=== PATIENT | female | born 1980 | race Caucasian/White ===

== ENCOUNTER 2019-02-27 19:26 | Emergency (ER) | payer OTHER ==
[~2019-02-27] VITALS: Ht 170.2 cm; Wt 72.6 kg
[~2019-02-27 19:26] MED LIST: CLONAZEPAM 1 MG1 M1 PO; KEFLEX500 MG PO; NORCO 5-325 TA1 EACH PO
[2019-02-27] MEDS ORDERED: PROMETH-CODEIN 65 ML PO (20:33)
[2019-02-27] MEDS ORDERED: TAMIFLU75 MG PO (20:33)
[2019-02-27 21:11] VITALS: BP 148/99
== END 2019-02-27 21:12 | disposition home or self-care (01) ==
LOC: ER 19:26
DX: J10.1 Influenza due to other identified influenza virus with other respiratory manifestations (principal); F41.9 Anxiety disorder, unspecified; F17.210 Nicotine dependence, cigarettes, uncomplicated; Z90.710 Acquired absence of both cervix and uterus; Z88.8 Allergy status to other drugs, medicaments and biological substances

== ENCOUNTER 2019-03-10 15:13 | Emergency (ER) | payer OTHER ==
[~2019-03-10] VITALS: Ht 170.2 cm; Wt 70.3 kg
[~2019-03-10 15:13] MED LIST changes: +PROMETH-CODEIN 65 ML PO; +TAMIFLU75 MG PO
[2019-03-10 15:46] LABS: BASOPHILS 0.8 % (0.0-2.0); EOSINOPHILS 0.7 % (0.0-3.0); HEMATOCRIT 43.6 % (37.0-47.0); HEMOGLOBIN 14.3 gm/dL (12.0-15.0); LYMPHOCYTES 16.1 % (24.0-44.0); MCH 30.1 pg (26.0-34.0); MCHC 32.7 g/dL (28.0-37.0); MCV 91.8 fL (80.0-100.0); PLATELET COUNT 440 thou/uL (150-400); POLYS 77.4 % (36.0-66.0); RBC 4.75 mil/uL (4.20-5.00); WBC 14.3 thou/uL (4.0-11.0)
[2019-03-10 15:52] LABS: CALCIUM 9.1 mg/dL (8.5-10.1); CREATININE 1.1 mg/dL (0.6-1.0); POTASSIUM 3.9 mmol/L (3.5-5.1)
[2019-03-10 17:29] LABS: URINE BILIRUBIN NEGATIVE (Negative); URINE BLOOD TRACE (Negative); URINE CLARITY CLOUDY; URINE COLOR YELLOW; URINE GLUCOSE-RANDOM* NEGATIVE (Negative); URINE KETONES NEGATIVE (Negative); URINE PROTEIN (DIPSTICK) NEGATIVE (Negative); URINE UROBILINOGEN 0.2 E.U./dl (0.2-1.0)
[2019-03-10 17:30] LABS: URINE LEUKOCYTES-REFLEX 3+ (Negative); URINE NITRITE-REFLEX POSITIVE (Negative)
[2019-03-10 17:44] LABS: CASTS None Seen /LPF (None Seen); CRYSTALS None Seen /LPF (None Seen); MUCUS 0-3 Light strn/LPF (None Seen); SQUAMOUS >10 Many /LPF (0-3)
[2019-03-10 17:45] LABS: BACTERIA-REFLEX >30 Many /HPF (None Seen); URINE WBC-REFLEX >25 Many /HPF (0-5)
[2019-03-10 17:46] LABS: URINE RBC 0-2 Rare /HPF (0-2)
[2019-03-10] MEDS ORDERED: KEFLEX500 M1 PO (17:53)
[2019-03-10] MEDS ORDERED: IBUPROFEN 800800 M1 PO (17:53)
[2019-03-10 18:00] VITALS: BP 120/70
== END 2019-03-10 18:00 | disposition home or self-care (01) ==
LOC: ER 15:13
PROVIDERS: Nurse Practitioner Family
DX: N39.0 Urinary tract infection, site not specified (principal); R53.83 Other fatigue; R53.81 Other malaise; F41.9 Anxiety disorder, unspecified; Z90.710 Acquired absence of both cervix and uterus; Z88.8 Allergy status to other drugs, medicaments and biological substances; F17.210 Nicotine dependence, cigarettes, uncomplicated

== ENCOUNTER 2020-06-28 15:25 | Emergency (ER) | payer OTHER ==
[~2020-06-28] VITALS: Ht 170.2 cm; Wt 73.0 kg
[~2020-06-28 15:25] MED LIST changes: +IBUPROFEN 800800 M1 PO; +KEFLEX500 M1 PO
[2020-06-28] MEDS ORDERED: PREDNISONE 20 M20 MG PO (17:52)
[2020-06-28] MEDS ORDERED: PEPCID20 MG PO (17:52)
[2020-06-28] MEDS ORDERED: DIPHENHIST50 MG PO (17:52)
[2020-06-28 18:33] VITALS: BP 112/68
--- NOTE | 2020-06-29 07:04 | EKG ---
[place] [address] [address] [place] [address] ELECTROCARDIOGRAM REPORT Name: ALEXIA RASHID Room #: DEP [facility]#: [id number] Admission: 06/28/20 Attend Phys: Discharge: 06/28/20 Date of : 84 Report #: [id number] [facility] ED Test Date: 2020-06-28 Test Time: 15:34:12 Pat Name: ALEXIA RASHID Department: Room: Gender: F Provider Relations Consultant: unknown : 1980 Requested By: Carrillo Vilchis Order Number: [id number] MD: Jaden Mariee Measurements Intervals [place] Rate: 127 P: 80 IN: 124 QRS: 82 QRSD: 87 T: 10 QT: 300 QTc: 437 Interpretive Statements Sinus tachycardia LAE, consider biatrial enlargement Borderline right axis deviation Minimal ST depression, inferior leads Borderline ST elevation, anterior leads No previous ECG available for comparison Electronically Signed On 06-29-2020 7:04:41 CDT by Jaden Mariee [email or web address] <ELECTRONICALLY SIGNED> By: Jaden Mariee MD, [facility] 06/29/20 [id number] Jaden Mariee MD, FACC /EPI
== END 2020-06-28 18:39 | disposition home or self-care (01) ==
LOC: ER 15:25
DX: L50.8 Other urticaria (principal); F15.10 Other stimulant abuse, uncomplicated; F12.10 Cannabis abuse, uncomplicated; F17.210 Nicotine dependence, cigarettes, uncomplicated; Z88.8 Allergy status to other drugs, medicaments and biological substances; Z90.710 Acquired absence of both cervix and uterus